=== PATIENT | male | born 1965 | race Caucasian/White ===

== ENCOUNTER 2024-05-21 07:07 | Day surgery (SDC) | payer BC, SELFPAY ==
[2024-05-15 13:15] VITALS: BMI 43.5
[2024-05-21 07:39] VITALS: BP 151/92; PULSE 62; RESP 18; TEMP 36.3; O2SAT 98
--- NOTE | 2024-05-21 08:04 | EXP.ANES.CKL ---
[facility] Disclaimer: The information contained in this section may have been updated after the patient was seen, as this information can be updated by other users. Medical History (Updated 05/21/24 @ 07:51 by Katina Viveros RN) Colonoscopy planned HLD (hyperlipidemia) HTN (hypertension) GERD (gastroesophageal reflux disease) Surgical History (Updated 05/21/24 @ 07:51 by Katina Viveros RN) H/O umbilical hernia repair History of left hip replacement S/P left colectomy Family History Father Crohn's disease Social History (Updated 05/21/24 @ 07:52 by Katina Viveros RN) Smoking Status: Never smoker alcohol intake: never substance use type: denies use current occupational status: employed Travel in the last 8 weeks: None caffeine: Yes [facility] Anesthesia Checklist Patient Identification Patient Identification: Verbal (Name & ) Structural Data Admitted From: Home Planned Operative Procedure/s: egd,colonoscopy NPO Status Verified Time NPO: 00:00 Airway Assessment Mallampati Score:: Class III C-Spine Mobility Assessed: Yes TMJ Mobility Assessed: Yes Dentition: Good Dentition Neurological Assessment Level of Consciousness: Awake, Alert and Appropriate Anesthesia Plan Anesthesia Risk discussed: Yes Anesthesia Plan: Verified ASA Class: III Anesthesia Type: MAC
[2024-05-21 08:58] VITALS: O2SAT 98
--- NOTE | 2024-05-21 09:01 | P.HP_ITS ---
History of Present Illness *Admission Date: 05/21/24 *Reason for visit:: Choking/screening colonoscopy *History of present illness: Mr. Gonzalez is a 59-year-old gentleman who is here for choking for EGD and screening colonoscopy for colonoscopy. The examination is deemed medically necessary for EGD and screening colonoscopy. The patient has been seen, interviewed and examined prior to the procedure by both myself and the anesthesia provider. [facility] Disclaimer: The information contained in this section may have been updated after the patient was seen, as this information can be updated by other users. Medical History (Updated 05/21/24 @ 09:03 by Rafi Harley II, MD) Colonoscopy planned HLD (hyperlipidemia) HTN (hypertension) GERD (gastroesophageal reflux disease) Surgical History (Updated 05/21/24 @ 07:51 by Katina Viveros RN) H/O umbilical hernia repair History of left hip replacement S/P left colectomy Family History Father Crohn's disease Social History (Updated 05/21/24 @ 08:05 by Moe Barth CRNA) Smoking Status: Never smoker alcohol intake: never substance use type: denies use current occupational status: employed Travel in the last 8 weeks: None caffeine: Yes Have you lived/traveled outside [place] in past 30 days?: No Contact w/someone who lives/traveled outside [place] past 30 days?: No Exposure to someone with infectious disease in past 14 days?: No Do you have a fever (greater than 100.4 F or 38 C)?: No Have you tested positive for COVID-19: No Exposed to someone with COVID-19 in past 14 days?: No Do you have a sore throat?: No Do you have a cough?: No Do you have any weakness?: No Are you experiencing any nausea/vomitting?: No Do you have any diarrhea?: No Are you experiencing any unusual bleeding?: No Do you have any muscle aches/pain?: No Do you have any abdominal pain?: No Are you experiencing loss of taste or smell?: No Other Medical History Have you received the Pneumonia Vaccine: No Review of Systems Review of Systems Review of systems (narrative): Negative *Cardiovascular Comments: Negative *Gastrointestinal Comments: Negative *Genitourinary Comments: Negative *Musculoskeletal Comments: Negative *Neurologic Comments: Negative Meds Home Medications and Allergies Home Medications ?Medication ?Instructions ?Recorded ?Confirmed ?Type apixaban 5 mg tablet (Eliquis) 5 mg PO BID 05/10/24 05/21/24 History atorvastatin 40 mg tablet 40 mg PO DAILY 05/10/24 05/15/24 History bisoprolol 10 1 tab PO DAILY 05/10/24 05/15/24 History mg-hydrochlorothiazide 6.25 mg tablet budesonide-formoterol HFA 160 160 puff inhalation DAILY 05/10/24 05/15/24 History mcg-4.5 mcg/actuation aerosol inhaler (Breyna) diltiazem HCl 180 mg 180 mg PO DAILY 05/10/24 05/15/24 History capsule,extended release 24 hr (Cardizem CD) doxazosin 4 mg tablet 4 mg PO DAILY 05/10/24 05/15/24 History meloxicam 15 mg tablet 15 mg PO DAILY 05/10/24 05/15/24 History montelukast 10 mg tablet 10 mg PO DAILY 05/10/24 05/15/24 History omeprazole 20 mg capsule,delayed 20 mg PO DAILY 05/10/24 05/15/24 History release New Prescriptions to Start Prescriptions: Allergies Allergy/AdvReac Type Severity Reaction Status Date / Time No Known Allergies Allergy Verified 05/21/24 07:50 Exam Data for Last 24 hours Vital signs and Labs for Last 24 Hours: Temp Pulse Resp BP Pulse Ox O2 Del Method O2 Flow Rate 97.4 F L 62 18 151/92 H 98 Nasal Cannula 5 05/21/24 07:39 05/21/24 07:39 05/21/24 07:39 05/21/24 07:39 05/21/24 07:39 05/21/24 08:58 05/21/24 08:58 *Routine HEENT Exam Head: Present normocephalic Eye: Present EOMI and PERRL ENT: Present mucous membranes moist *Routine Neck Exam Neck: Present supple *Routine Respiratory Exam Respiratory: Present CTA bilaterally *Routine Cardiovascular Exam Cardiovascular: Present RRR *Routine Abdominal Exam Abdominal: Present soft and normoactive bowel sounds; Absent tenderness *Routine Rectal Exam Rectal:: deferred *Routine Genitalia Exam Genitalia:: deferred *Routine Extremities Exam Extremities: Absent cyanosis, clubbing or edema *Routine Skin Exam Skin: Present warm; Absent rash *Routine Neurological Exam Neurological: Present alert and oriented X3 Assessment and Plan *Assessment and plan (1) Choking: Status: Acute Category: Medical Code(s): T17.308A - Unspecified foreign body in larynx causing other injury, initial encounter (2) Cough: Status: Acute Category: Medical Code(s): R05.9 - Cough, unspecified (3) Dysphagia: Status: Acute Category: Medical Code(s): R13.10 - Dysphagia, unspecified (4) Chronic GERD: Status: Acute Category: Medical Code(s): K21.9 - Gastro-esophageal reflux disease without esophagitis (5) Screening for colon cancer: Status: Acute Category: Medical Code(s): Z12.11 - Encounter for screening for malignant neoplasm of colon Plan A/P: 1. Choking/dysphagia with chronic GERD and cough for EGD and screening for colonoscopy is the preprocedural diagnosis. The patient will be anesthetized/sedated using MAC sedation. The patient has been seen and examined. Cardiac and lung assessment prior to the examination is stable. Proceed with planned EGD and colonoscopy
--- NOTE | 2024-05-21 09:07 | HMH.PROCNOTE ---
[facility] Procedure Note Date: 05/21/24 Time: 09: Procedure Note:: Upper Endoscopy Procedure Report: Esophagogastroduodenoscopy with cold biopsies and TTS balloon dilation Endoscopost: Rafi Harley II, MD Referring Physician: Chris Shanks MD Date of Procedure: May 21, 2024 Equipment: Olympus GIF 190 standard upper endoscope Sedation: MAC sedation Indications: Mr. Gonzalez is a 59-year-old gentleman with longstanding GERD. He did see ENT and Dr. Magallon had recommended omeprazole twice daily but he does have good control of his GERD symptoms with once daily use of omeprazole. The patient more recently has had some coughing and choking on certain foods including granola bars. He does feel that food is slow to go down especially dry foods. This can occur with peanut butter. The patient reports no abdominal pain, weight loss or melena. His sister had eosinophilic esophagitis. His father had Crohn's disease. Procedure: Prior to the procedure, a history and physical exam was performed, and patient's medications and allergies were reviewed. The risks, benefits and alternatives of the sedation and procedure were discussed with the patient. All questions were answered and informed consent was obtained. The patient was brought to the procedure room. Patient identification and proposed procedure were verified by the physician and the nurse. The patient was placed in a left lateral decubitus position and the scope was passed under direct vision. Throughout the procedure, the patient's blood pressure, pulse, and oxygen saturations were monitored continuously. The upper GI endoscopy was accomplished without difficulty. The patient tolerated the procedure well. Findings: The scope was passed directly into the upper esophagus and advanced to the third portion of the duodenum. The post bulbar duodenum, ampulla and duodenal bulb were normal with normal mucosa and conniventes. The scope was withdrawn through a normal duodenal bulb and pylorus into the stomach. There was moderate bile reflux with mild to moderate linear reactive gastropathy of the antrum. The body and fundus were normal. Upon retroflexion there was no hiatal hernia. Biopsies were taken from the antrum. The scope was then withdrawn into the esophagus. There is no evidence of reflux esophagitis or Jhaveri's. There were strong tertiary contractions and evidence of moderate esophageal dysmotility. There was no corrugation or furrowing. Biopsies were taken from the midesophagus to rule out eosinophilic esophagitis. There was a proximal esophageal inlet patch. The entire esophagus was dilated to 60 Georgian/20 mm with a TTS hydrostatic balloon. There was mild resistance at the cricopharyngeus. The remainder of the esophageal mucosa was normal. Impression: 1. Mild cricopharyngeal spasm 2. Proximal esophageal inlet patch 3. Nonerosive GERD with moderate esophageal dysmotility 4. Bile reflux with mild to moderate linear reactive gastropathy Plan: I will follow-up the biopsies. I do feel that he gets bile reflux with some cricopharyngeal spasm. We will discuss treatment options. I will proceed with surveillance colonoscopy. The patient does have uncomplicated GERD.
--- NOTE | 2024-05-21 09:20 | P.PCN_ITS ---
[facility] Procedure Note Date: 05/21/24 Time: 09:32 Procedure Note:: Colonoscopy Procedure Report: Colonoscopy with cold snare polypectomy Endoscopist: Rafi Harley II, MD Referring physician: Chris Shanks MD Date of Procedure: May 21, 2024 Equipment: Olympus 190 variable stiffness pediatric colonoscope Sedation: MAC sedation Indication: Mr. Gonzalez is a 59-year-old gentleman who is here for follow-up surveillance colonoscopy. He had a colonoscopy in 2019 and had 3 polyps (tubul ar adenoma x 1/hyperplastic polyps x 2) removed. He reports no abdominal pain, weight loss, change in his bowel habits or rectal bleeding. He reports no family history of colon cancer. His father had Crohn's disease. He does get some gas and bloating. The patient does take psyllium fiber. He did have prior colonic resection/sigmoid resection for diverticulitis. Procedure: Prior to the procedure, a history and physical exam was performed, and patient's medications and allergies were reviewed. The risks, benefits and alternatives of the sedation and procedure were discussed with the patient. All questions were answered and informed consent was obtained. The patient was brought to the procedure room. Patient identification and proposed procedure were verified by the physician and the nurse. The patient was placed in a left lateral decubitus position and the scope was passed under direct vision. Throughout the procedure, the patient's blood pressure, pulse, and oxygen saturations were monitored continuously. The colonoscopy was accomplished without difficulty. The patient tolerated the procedure well. Findings: On digital rectal examination there was normal rectal tone. There were no external hemorrhoids. The prostate was 2+, smooth, soft, symmetric without nodules. The colonoscope was introduced through the anal canal to the rectum and advanced to the cecum. The ileocecal valve and appendiceal orifice were identified. The scope was advanced a short distance into the ileum which appeared grossly normal. The scope was then withdrawn into the colon. There were scattered diverticuli throughout the colon. The prior colocolonic anastomosis was normal in appearance. There were 2 polyps (descending x 1 (4 mm) and rectum x 1 (4 mm)). Both of these were removed via cold snare polypectomy. There were no other mucosal abnormalities identified. Upon retroflexion within the rectum there were grade 2 internal hemorrhoids. The preparation was excellent throughout with [place] Preparation Score of 9. The cecal time was 12 minutes. Impression: 1. Diminutive colonic polyps x 2 2. Pandiverticulosis with evidence of prior sigmoid resection and normal coloco lonic anastomosis 3. Grade 2 internal hemorrhoids Plan: I will follow-up the polyp histology and recommend repeat surveillance colonoscopy again in 7 years if the polyps are adenomatous. I would encourage continuation of the fiber bowel regimen.
[2024-05-21 09:37] VITALS: BP 123/67; PULSE 68; RESP 15; TEMP 36.3; O2SAT 94
[2024-05-21 09:47] VITALS: BP 116/79; PULSE 71; RESP 17; O2SAT 96
[2024-05-21 09:57] VITALS: BP 120/73; PULSE 73; RESP 18; O2SAT 95
[2024-05-21 10:07] VITALS: BP 123/70; PULSE 76; RESP 18; O2SAT 95
== END 2024-05-21 10:20 | disposition home or self-care (01) ==
PROVIDERS: PCP Family Medicine; Visit Provider Internal Medicine Gastroenterology
PROC: 0DJ08ZZ Inspection of Upper Intestinal Tract, Via Natural or Artificial Opening Endoscopic (ICD-10-PCS; CPT 45378; principal; 2024-05-21 08:30)
DX: T17.308A Unspecified foreign body in larynx causing other injury, initial encounter (principal); R05.9 Cough, unspecified; R13.10 Dysphagia, unspecified; K21.9 Gastro-esophageal reflux disease without esophagitis; Z12.11 Encounter for screening for malignant neoplasm of colon; K86.81 Exocrine pancreatic insufficiency; R14.0 Abdominal distension (gaseous); Z83.79 Family history of other diseases of the digestive system; Z86.0100 Personal history of colon polyps, unspecified; K31.9 Disease of stomach and duodenum, unspecified; K22.4 Dyskinesia of esophagus; J39.2 Other diseases of pharynx; K63.5 Polyp of colon; K57.30 Diverticulosis of large intestine without perforation or abscess without bleeding; K64.1 Second degree hemorrhoids
CPT/HCPCS: 43239; 43249; 45385; C1726; J2704